=== PATIENT | male | born 1985 | race Two or more races ===

== ENCOUNTER 2016-07-21 12:37 | Emergency (ER) | payer MEDICAID, OTHER | END 2016-07-21 16:50 | disposition left against medical advice (07) | LOC: ER 12:39 | DX: M54.9 Dorsalgia, unspecified (principal); Z53.21 Procedure and treatment not carried out due to patient leaving prior to being seen by health care provider ==

== ENCOUNTER 2018-05-19 12:16 | Emergency (ER) | payer BC, MEDICAID ==
[~2018-05-19] VITALS: Ht 175.3 cm; Wt 104.3 kg
[2018-05-19 12:31] VITALS: BP 118/81
[2018-05-19] MEDS ORDERED: SODIUM CHLORIDE 0.9% 2,000 ML IVB ONE (13:16)
[2018-05-19 13:47] LABS: Urine WBC None Seen /hpf (0 - 3)
[2018-05-19 13:52] LABS: Basophils # (auto) 0.1 uL; Basophils % (auto) 0.7 % (0.0-2.0); Eosinophils # (auto) 0.2 uL; Eosinophils % (auto) 2.1 % (0.0-7.0); Hematocrit 44.6 % (41.0-53.0); Hemoglobin 15.2 g/dL (13.5-17.5); Lymphocytes # (auto) 1.6 uL; Lymphocytes % (auto) 19.8 % (10.0-50.0); Mean Corpuscular Hemoglobin 31.2 pg (28.0-32.0); Mean Corpuscular Hgb Conc. 34.1 g/dL (32.0-36.0); Mean Corpuscular Volume 91.4 fL (80.0-100.0); Monocytes # (auto) 0.7 uL; Monocytes % (auto) 9.3 % (0.0-12.0); Neutrophils # (auto) 5.3 uL; Neutrophils % (auto) 68.1 % (37.0-80.0); Platelet Count (auto) 225 10^3/uL (140-450); Red Blood Cells 4.88 10^6/uL (4.5-5.90); Red Cell Distribution Width 13.2 % (11.8-14.3); White Blood Cell 7.8 10^3/uL (4.4-10.8)
[2018-05-19 14:01] LABS: Urine Bacteria NONE SEEN /hpf (None Seen); Urine Blood TRACE /uL (Negative); Urine Mucus FEW (None Seen); Urine Specific Gravity 1.016 (1.001-1.035)
[2018-05-19 14:07] LABS: Calcium 8.7 mg/dL (8.5-10.1); Potassium 3.7 mmol/L (3.5-5.1)
[2018-05-19 14:10] LABS: BUN/Creatinine Ratio 14.9; Bilirubin, Total 0.4 mg/dL (0.2-1.0); Total Protein 8.5 g/dL (6.4-8.2)
== END 2018-05-19 15:24 | disposition home or self-care (01) ==
LOC: ER 12:16
DX: M48.061 Spinal stenosis, lumbar region without neurogenic claudication (principal); K76.0 Fatty (change of) liver, not elsewhere classified
CPT/HCPCS: 36415; 71046; 74176; 80053; 81001; 83690; 85025; 93005; 99284; J7030

== ENCOUNTER 2018-10-26 14:20 | Emergency (ER) | payer BC ==
[~2018-10-26] VITALS: Ht 175.3 cm; Wt 104.3 kg
[2018-10-26] MEDS ORDERED: SODIUM CHLORIDE 0.9% 1,000 ML IV ONE (14:53)
[2018-10-26 15:32] LABS: Basophils # (auto) 0.1 uL; Basophils % (auto) 1.1 % (0.0-2.0); Eosinophils # (auto) 0.3 uL; Eosinophils % (auto) 3.3 % (0.0-7.0); Hematocrit 44.7 % (41.0-53.0); Hemoglobin 15.5 g/dL (13.5-17.5); Lymphocytes # (auto) 2.5 uL; Lymphocytes % (auto) 30.1 % (10.0-50.0); Mean Corpuscular Hemoglobin 31.4 pg (28.0-32.0); Mean Corpuscular Hgb Conc. 34.8 g/dL (32.0-36.0); Mean Corpuscular Volume 90.2 fL (80.0-100.0); Monocytes # (auto) 0.6 uL; Monocytes % (auto) 7.7 % (0.0-12.0); Neutrophils # (auto) 4.8 uL; Neutrophils % (auto) 57.8 % (37.0-80.0); Nucleated Red Blood Cells % 0.1 %; Platelet Count (auto) 236 10^3/uL (140-450); Red Blood Cells 4.95 10^6/uL (4.5-5.90); Red Cell Distribution Width 12.7 % (11.8-14.3); White Blood Cell 8.2 10^3/uL (4.4-10.8)
[2018-10-26 15:42] LABS: Alanine Aminotransferase 66 U/L (16-61); Albumin 4.6 g/dL (3.4-5.0); Anion Gap 8 (5-15); Aspartate Aminotransferase 32 U/L (15-37); BUN/Creatinine Ratio 20.5; Blood Urea Nitrogen 18 mg/dL (7-18); Calcium 8.9 mg/dL (8.5-10.1); Carbon Dioxide 29 mmol/L (21-32); Chloride 102 mmol/L (98-107); GFR African American 128 mL/min; GFR Non-African American 106 mL/min; Glucose 96 mg/dL (74-106); Potassium 3.3 mmol/L (3.5-5.1); Sodium 139 mmol/L (136-145)
[2018-10-26 15:46] LABS: Alkaline Phosphatase 86 U/L (45-117); Bilirubin, Total 0.6 mg/dL (0.2-1.0); Total Protein 8.8 g/dL (6.4-8.2)
[2018-10-26] MEDS ORDERED: POTASSIUM EFFERVESENT TAB 25 MEQ PO ONE (16:30)
[2018-10-26 16:40] VITALS: BP 126/72
== END 2018-10-26 17:19 | disposition home or self-care (01) ==
LOC: ER 14:20
DX: R42 Dizziness and giddiness (principal); R55 Syncope and collapse; E87.6 Hypokalemia; I10 Essential (primary) hypertension
CPT/HCPCS: 36415; 70450; 80053; 84484; 85025; 93005; 96360; 99284; J7030

== ENCOUNTER 2018-12-27 15:24 | Emergency (ER) | payer BC ==
[~2018-12-27] VITALS: Ht 175.3 cm; Wt 104.3 kg
[2018-12-27 16:40] VITALS: BP 116/88
[2018-12-27] MEDS: KETOROLAC TROMETH 60MG/2ML VIAL IM ONE (16:42)
== END 2018-12-27 17:09 | disposition home or self-care (01) ==
LOC: ER 15:43
DX: M54.41 Lumbago with sciatica, right side (principal); I10 Essential (primary) hypertension
CPT/HCPCS: 96372; 99283; J1885

== ENCOUNTER 2020-01-30 08:58 | Emergency (ER) | payer SELFPAY ==
[~2020-01-30] VITALS: Ht 175.3 cm; Wt 102.1 kg
[2020-01-30 09:03] VITALS: BP 157/96
[2020-01-30] MEDS ORDERED: cefTRIAXone SOD 500 MG VL IM ONE (10:00)
== END 2020-01-30 10:18 | disposition home or self-care (01) ==
LOC: ER 08:58
DX: N34.2 Other urethritis (principal); A63.8 Other specified predominantly sexually transmitted diseases; R31.9 Hematuria, unspecified
CPT/HCPCS: 81002; 96372; 99283; J0696

== ENCOUNTER 2020-09-25 19:37 | Emergency (ER) | payer BC, MEDICAID, OTHER ==
[~2020-09-25] VITALS: Ht 177.8 cm; Wt 104.3 kg
[2020-09-25] MEDS ORDERED: KETOROLAC TROMETH 60MG/2ML VIAL IM ONE (23:00)
[2020-09-25 23:37] VITALS: BP 155/102
== END 2020-09-25 23:32 | disposition home or self-care (01) ==
LOC: ER 19:37
DX: S93.402A Sprain of unspecified ligament of left ankle, initial encounter (principal); I10 Essential (primary) hypertension; X50.1XXA Overexertion from prolonged static or awkward postures, initial encounter; Y93.89 Activity, other specified; Y92.89 Other specified places as the place of occurrence of the external cause; Y99.8 Other external cause status
CPT/HCPCS: 73610; 99283; J1885

== ENCOUNTER 2021-03-24 22:49 | Emergency (ER) | payer MEDICAID ==
[~2021-03-24] VITALS: Ht 175.3 cm; Wt 104.3 kg
[2021-03-25 01:02] VITALS: BP 156/90
== END 2021-03-25 03:10 | disposition home or self-care (01) ==
LOC: ER 22:51
DX: S06.0X1A Concussion with loss of consciousness of 30 minutes or less, initial encounter (principal); S00.211A Abrasion of right eyelid and periocular area, initial encounter; I10 Essential (primary) hypertension; Y04.2XXA Assault by strike against or bumped into by another person, initial encounter; Y93.89 Activity, other specified; Y92.89 Other specified places as the place of occurrence of the external cause; Y99.8 Other external cause status
CPT/HCPCS: 70486

== ENCOUNTER 2022-01-19 10:21 | Emergency (ER) | payer MEDICAID ==
[~2022-01-19] VITALS: Ht 175.3 cm; Wt 106.8 kg
[2022-01-19 12:12] VITALS: BP 152/108
[2022-01-19] MEDS ORDERED: KETOROLAC TROMETH 60MG/2ML VIAL IM ONE (12:30)
[2022-01-19] MEDS ORDERED: CYCL-837 PO (12:31)
[2022-01-19] MEDS ORDERED: IBUP800T27 PO (12:31)
== END 2022-01-19 13:56 | disposition home or self-care (01) ==
LOC: ER 10:21
DX: M54.31 Sciatica, right side (principal); I10 Essential (primary) hypertension
CPT/HCPCS: 96372; 99283; J1885

== ENCOUNTER 2023-10-06 14:26 | Emergency (ER) | payer MEDICAID ==
[~2023-10-06] VITALS: Ht 175.3 cm; Wt 81.8 kg
[~2023-10-06 14:26] MED LIST: CYCL-837 PO; IBUP-1456 PO
[2023-10-06 14:50] LABS: Basophils # (auto) 0.1 10 ^3/uL (0-0.2); Basophils % (auto) 0.7 % (0.0-2.0); Eosinophils # (auto) 0.1 10 ^3/uL (0-0.8); Hematocrit 46.7 % (41.0-53.0); Lymphocytes # (auto) 2.1 10 ^3/uL (0.4-5.4); Lymphocytes % (auto) 28.9 % (10.0-50.0); Mean Corpuscular Hemoglobin 30.9 pg (28.0-32.0); Mean Corpuscular Hgb Conc. 34.3 g/dL (32.0-36.0); Monocytes # (auto) 0.4 10 ^3/uL (0-1.3); Neutrophils # (auto) 4.7 10 ^3/uL (1.6-8.6); Neutrophils % (auto) 64.4 % (37.0-80.0); Nucleated Red Blood Cells % 0.1 %; Red Blood Cells 5.19 10^6/uL (4.5-5.90); Red Cell Distribution Width 13.6 % (11.8-14.3); White Blood Cell 7.3 10^3/uL (4.4-10.8)
[2023-10-06 14:51] VITALS: BP 139/94; RESP 18; O2SAT 96
[2023-10-06 15:00] LABS: INR 1.04 (0.9-1.15); Partial Thromboplastin Time 28.2 SEC (24.5-34.5); Prothrombin Time 10.9 sec (9.3-11.8)
[2023-10-06 15:06] LABS: Alanine Aminotransferase 37 U/L (7-40); Alkaline Phosphatase 82 U/L (46-116); Anion Gap 6 (5-15); Aspartate Aminotransferase 21 U/L (13-40); BUN/Creatinine Ratio 15.3 (10.0-20.0); Blood Urea Nitrogen 15 mg/dL (9-23); Carbon Dioxide 29 mmol/L (20-30); Chloride 104 mmol/L (98-107); Glucose 137 mg/dL (74-106); Potassium 3.9 mmol/L (3.5-5.1); Sodium 139 mmol/L (136-145)
[2023-10-06 15:07] LABS: Albumin 4.9 g/dL (3.2-4.8); Bilirubin, Total 0.6 mg/dL (0.2-1.0)
[2023-10-06 15:10] LABS: Urine Bacteria None Seen /hpf (None Seen)
[2023-10-06 15:29] LABS: Urine Blood TRACE /uL (Negative); Urine Clarity Clear (Clear); Urine Color Yellow (Yellow); Urine Mucus FEW (None Seen); Urine Protein, UAD Negative (Negative); Urine Specific Gravity 1.025 (1.001-1.035); Urine Urobilinogen Normal (Negative); Urine WBC 1 /hpf (0 - 3); Urine pH 5.5 (5.0-9.0)
[2023-10-06] MEDS ORDERED: NITROGLYCERIN 0.4 MG SL TAB SL ONE (15:30)
[2023-10-06] MEDS ORDERED: ASPirin 325 MG TAB PO ONE (15:30)
[2023-10-06 15:53] LABS: Amphetamine Screen, Urine Neg (NEGATIVE); Barbiturate Scree,Urine Neg (NEGATIVE); Benzodiazephine Screen, Urine Neg (NEGATIVE); Cannabinoid Screen, Urine Neg (NEGATIVE); Cocaine Screen, Urine Neg (NEGATIVE); Opiate Scree,Urine Neg (NEGATIVE); Phencyclidine Screen, Urine Neg (NEGATIVE)
[2023-10-06 17:30] VITALS: PULSE 70
== END 2023-10-07 00:04 | disposition left against medical advice (07) ==
LOC: ER 14:26
DX: R07.89 Other chest pain (principal); I10 Essential (primary) hypertension; Z79.1 Long term (current) use of non-steroidal anti-inflammatories (NSAID); Z79.899 Other long term (current) drug therapy
CPT/HCPCS: 36415; 71045; 80053; 80307; 81001; 83735; 83880; 84484; 85025; 85379; 85610; 85730; 93005